=== PATIENT | male | born 1980 | race Caucasian/White ===

== ENCOUNTER 2018-11-06 10:18 | Emergency (ER) | payer OTHER ==
--- NOTE | 2018-11-06 11:07 | ED Physician Chart ---
ED Chief Complaint/HPI - Patient Information Date Seen:: 11/06/18 Time Seen:: 10:50 Chief Complaint:: low back pain History of Present Illness:: Patient developed low back pain last night. No recent trauma. Pain seems to radiate throughout his entire body. No new bladder or bowel problems. Patient mentions he sometimes has irritable bowel syndrome. Patient's had intermittent back pain for last 10 years. An MRI 10 years ago showed a thoracic spine fracture which he was told it would heal on its own. Allergies:: Allergies Allergy/AdvReac Type Severity Reaction Status Date / Time No Known Allergies Allergy Verified 11/06/18 10:21 Vitals:: Vital Signs - 8 hr 11/06/18 10:22 Temp 97.1 F HR 91 RR 18 BP 135/87 O2 Sat % 95 Historian:: Patient Review:: Nurse's Note Reviewed ED Review of Systems - Review of Systems General/Constitutional: No fever, No chills, No weight loss, No weakness, No diaphoresis, No edema, No loss of appetite Skin: No skin lesions, No rash, No bruising Head: No headache, No light-headedness Eyes: No loss of vision, No pain, No diplopia ENT: No earache, No nasal drainage, No sore throat, No tinnitus Neck: No neck pain, No swelling, No thyromegaly, No stiffness, No mass noted Cardio Vascular: No chest pain, No palpitations, No PND, No orthopnea, No edema Pulmonary: No SOB, No cough, No sputum, No wheezing GI: No nausea, No vomiting, No diarrhea, No pain, No melena, No hematochezia, No constipation, No hematemesis G/U: No dysuria, No frequency, No hematuria Musculoskeletal: Bone or joint pain, Back pain, No muscle pain Endocrine: No polyuria, No polydipsia Psychiatric: No prior psych history, No depression, No anxiety, No suicidal ideation Hematopoietic: No bruising, No lymphadenopathy Allergic/Immuno: No urticaria, No angioedema Neurological: No syncope, No focal symptoms, No weakness, No paresthesia, No headache, No seizure, No dizziness, No confusion, No vertigo ED Past Medical History - Past Medical History Past Medical History: Other (irritable bowel syndrome) Family History: Diabetes Melitus, HTN, Cancer Social History: Smoker, Alcohol, Other (patient smokes one half pack of cigarettes a day; 6-8 alcoholic beverages about once a week) Surgical History: Hernia Psychiatricy History: None Medication: Reviewed Family Medical History - Family Member Brother Living Status: Still Living Other Medical History: back prob. ED Physical Exam - Physical Examination General/Constitutional: Awake, Well-developed, well-nourished, Alert, No distress, GCS 15, Non-toxic appearing, Ambulatory Head: Atraumatic Eyes: Lids, conjuctiva normal, PERRL, EOMI Skin: Nl inspection, No rash, No skin lesions, No ecchymosis, Well hydrated, No lymphadenopathy ENMT: External ears, nose nl, Nasal exam nl, Lips, teeth, gums nl Neck: Nontender, Full ROM w/o pain, No JVD, No nuchal rigidity, No bruit, No mass, No stridor Respiratory: Nl effort/Exclusion, Clear to Auscultation, No Wheeze/Rhonchi/Rales Cardio Vascular: RRR, No murmur, gallop, rubs, NL S1 S2 GI: No tenderness/rebounding/guarding, No organomegaly, No hernia, Normal BS's, Nondistended, No mass/bruits, No McBurney tenderness : No CVA tenderness Extremities: Normal digits & nails Neuro/Psych: Alert/oriented, Normal gait, No focal deficits Other Neuro/Psych comments:: Straight leg raising of 80 bilaterally; strength large toes and sensation both feet intact; deep tendon reflexes knees one out of 4 ankles 3 out of 4. 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 Patient given a note that he may return to work in 4 days and sooner if he feels okay. I suggested patient take [id number] ibuprofen 3 3 times a day for about 1 week only. ED Septic Shock - . Is Septic Shock (SBP<90, OR Lactate>4 mmol\L) present?: No - <6hrs of presentation: Vital Signs: Vital Signs - 8 hr 11/06/18 10:22 Temp 97.1 F HR 91 RR 18 BP 135/87 O2 Sat % 95 ED Reassessment (Disposition) - Reassessment Reassessment Condition:: Improved - Diagnosis Diagnosis:: Low back pain - Aftercare/Follow up Instructions Aftercare/Follow-Up Instructions:: Refer to Discharge Instructions Medication Prescribed:: Flexeril 10 mg #20 to take 1 3 times a day - Patient Disposition Discharge/Transfer:: Home Condition at Disposition:: Stable, Improved
== END 2018-11-06 11:40 | disposition home or self-care (01) ==
LOC: ER 10:18
DX: M54.5 Low back pain (principal); F17.210 Nicotine dependence, cigarettes, uncomplicated
CPT/HCPCS: 99283; 96372; J1885; Z7502

== ENCOUNTER 2018-12-17 15:52 | Emergency (ER) | payer OTHER ==
--- NOTE | 2019-01-01 15:33 | ER Physician Documentation ---
DATE OF SERVICE: 12/17/2018 HISTORY OF PRESENT ILLNESS: This is a 38-year-old male patient who presents to the Emergency with onset x 2 days of fever, cough and congestion. The patient is eating and urinating well. The patient last urinated about an hour prior to admission. The patient denies trauma, headaches, neck pain, chest pain, shortness of breath, abdominal pain, nausea, vomiting or diarrhea. The patient is eating and urinating well. PAST MEDICAL HISTORY: None. MEDICATIONS: Per nurse's notes. ALLERGIES: No known allergies. FAMILY HISTORY: Not known. REVIEW OF SYSTEMS: Otherwise, essentially noncontributory. PHYSICAL EXAMINATION: GENERAL: The patient is in no acute distress, alert and oriented x 3, afebrile. VITAL SIGNS: Stable. HEENT: Positive nasal congestion. Ears and pharynx within normal limits. NECK: Supple. No meningeal signs. No cervical tenderness. CARDIOVASCULAR: Regular rate and rhythm. LUNGS: Clear with good breath sounds bilaterally. ABDOMEN: Soft, nontender, normoactive bowel sounds. No pulsatile masses. EXTREMITIES: No edema, clubbing or cyanosis. NEUROLOGIC: Showed no focal signs. HOSPITAL COURSE: The patient tolerated oral fluids well and the patient was asymptomatic upon discharge. Thus, the patient was discharged with a prescription for amoxicillin 500 mg 3 times a day for 10 days, Tylenol 500 mg 4 times a day p.r.n. fever, Robitussin-DM cough syrup 1 teaspoon p.o. 4 times a day p.r.n. cough and congestion, cool mist vaporizer. The patient is to encourage fluids. The patient is to be referred to Internal Medicine doctor as soon as possible. Otherwise, follow up care with primary physician in one day or as needed. Aftercare instructions were given for all the above diagnosis, return to Emergency Room as needed if concerned. FINAL DIAGNOSES: Cough, bronchitis, congestion, sinusitis, fever and upper respiratory tract infection. JOB# [id number]
== END 2018-12-17 16:26 | disposition home or self-care (01) ==
LOC: ER 15:52
DX: J40 Bronchitis, not specified as acute or chronic (principal); J32.9 Chronic sinusitis, unspecified; J06.9 Acute upper respiratory infection, unspecified
CPT/HCPCS: Z7502